=== PATIENT | female | born 1955 | race Caucasian/White ===

== ENCOUNTER → 2023-02-06 | Outpatient (CLI) | payer OTHER, SELFPAY ==
--- NOTE | 2023-02-06 09:20 | US_ITS ---
STUDY: RENAL ULTRASOUND - COMPLETE REASON FOR EXAM: Female, 68 years old. Flank pain and fever TECHNIQUE: Ultrasound evaluation of the kidneys was performed with real-time and static guerin-scale imaging. COMPARISON: None. FINDINGS: RIGHT KIDNEY: Normal location of the right kidney, which is normal in size. The right kidney measures 12.0 x 5.1 x 4.2 cm. There is a normal cortex of the right kidney. The renal cortex measures 1.1 cm. There are 2 separate simple cysts, both measure approximately 1.1 cm in greatest dimension. There are no right renal calculi. There is no right hydronephrosis. DISTAL RIGHT URETER: There is non-visualization of the distal right ureter. There is no demonstrated right ureterovesical junction calculus. There is a visualized right ureteral jet. LEFT KIDNEY: Normal location of the left kidney, which is normal in size. The left kidney measures 11.4 x 4.7 x 5.4 cm. There is a normal cortex of the left kidney. The renal cortex measures 1.4 cm. There is no left renal mass or cyst. There is a nonobstructing 5 mm stone. There is no left hydronephrosis. DISTAL LEFT URETER: There is non-visualization of the distal left ureter. There is no demonstrated left ureterovesical junction calculus. There is a visualized left ureteral jet. AORTA: There is no elongation or tortuosity of the abdominal aorta. I.V.C.: The IVC is patent. BLADDER: The bladder is sonographically normal US/Kidney and Bladder IMPRESSION: No obstructive uropathy or suspicious solid renal lesion Simple right renal cysts, no specific follow-up needed. Nonobstructing left nephrolithiasis Electronically Signed: Austin Easton MD at 12:08 EST ,
== END | disposition home or self-care (01) ==
PROVIDERS: Referring Provider Urology; Visit Provider Urology
DX: N39.0 Urinary tract infection, site not specified (principal)
CPT/HCPCS: 76770

== ENCOUNTER → 2023-03-05 | Outpatient (CLI) | payer OTHER, SELFPAY ==
--- NOTE | 2023-03-05 07:23 | CT_ITS ---
STUDY: CT ABDOMEN AND PELVIS WITHOUT CONTRAST REASON FOR EXAM: Female, 68 years old. UTI KIDNEY STONE. Left flank pain. RADIATION DOSAGE (If Supplied By Facility): CTDIvol = ( 6.08 ) mGy, DLP = ( 274.95 ) mGycm TECHNIQUE: Transaxial images were obtained from the dome of the diaphragm to the symphysis pubis without oral contrast, and without intravenous contrast. Sagittal and coronal images were reconstructed. Individualized dose optimization techniques were used for this CT. COMPARISON: Comparison is made with prior ultrasound of the kidneys dated February 06, 2023. FINDINGS: The visualized lung bases are unremarkable. Coronary artery calcification. Calcified granuloma in the anterior aspect of the right lobe of the liver superiorly. Normal gallbladder and extrahepatic biliary system. Normal spleen. Normal pancreas. There is symmetric enlargement of the adrenal glands suggesting adrenal hyperplasia. Normal right kidney. Normal left kidney. I suspect a 2.5 mm calculus at the left ureterovesical junction. Normal visualized stomach. Normal small intestine. Normal colon. The appendix is visualized and appears normal. There is diffuse atherosclerotic calcification of the abdominal aorta and its major visceral branches, without a demonstrated aneurysm. Normal inferior vena cava. Normal retroperitoneum. Mild degree of the bladder wall thickening although the bladder is not completely distended at this time. Normal abdominal wall. Loss of the normal lumbar lordosis. Marked degree of disc space narrowing and subchondral sclerosis in the spondylosis at the L4-L5 level. CT/Abdomen/Pelvis without Cont IMPRESSION: I suspect a 2.5 mm calculus at the left ureterovesical junction. Electronically Signed: Nacho Morales MD at 8:30 EST ,
== END | disposition home or self-care (01) ==
LOC: CT 07:22
PROVIDERS: Referring Provider Urology; Visit Provider Urology
DX: N20.0 Calculus of kidney (principal); N39.0 Urinary tract infection, site not specified
CPT/HCPCS: 74176

== ENCOUNTER → 2023-04-10 | Outpatient (CLI) | payer OTHER, SELFPAY ==
--- OUTSIDE RECORDS SUMMARY | 2023-04-10 08:12 | XMS RPT_ITS | CCD ---
Author Name Unknown Address [address] [place] [id number] Organization [facility] Care Team Providers Care Manager Garage Name Role Phone Anamaria XIAO DO Primary Care Physician Anamaria XIAO DO Primary Care Unavailable BENY ZUNIGA MD Attending Unavailable Anamaria XIAO DO Attending Unavailable Anamaria XIAO DO Primary Care Unavailable PATRIC WEN Attending Un available Anamaria XIAO DO Primary Care Unavailable ALEKSANDR FENTON PA-C Attending Unavailab Anamaria Perez DO Primary Care Unavailable DR CELESTE TYSON DO Attending Renetta vailable Anamaria XIAO DO Primary Care Unavailable Anamaria XIAO DO Attending Unavailable Anamaria XIAO DO Primary Care Unavailable Anamaria XIAO DO Attending Unavailable Anamaria XIAO DO Primary Care Unavailable Allergies Allergy Classification Reported Allergen(s) Allergy Type Date of Onset Reaction(s) Facility (1 source) Penicillin; Translations: [penicillin] Drug Allergy [facility] Medications Current Medications Medication Drug Class(es) Dates Sig (Normalized) Sig (Original) cetirizine hydrochloride 10 mg oral tablet (2 sources) Histamine-1 Receptor Antagonist Start: 08-14-2022 cetirizine 10 mg oral tablet 0 Refill(s) Start Date: 08/14/22 Status: Ordered Completed/Discontinued Medications Medication Drug Class(es) Dates Sig (Normalized) Sig (Original) albuterol MDI (90 mcg/inh) CFC free inhalation aerosol (1 source) Start: 08-14-2022 End: 09-13-2022 take 2 puff(s) by inhalation four times daily albuterol MDI (90 mcg/inh) CFC free inhalation aerosol 2 puff(s), Inhalation, QID, use with spacer chamber, # 1 EA, 0 Refill(s), Pharmacy: [id number], 160, cm, 08/14/22 13:12:00 EDT, Height, kg, 08/14/22 13:12:00 EDT, Dosing Weight Start Date: 08/14/22 Stop Date: 09/13/22 Status: Ordered Problems Active Problems Problem Classification Problem Date Documented Da te Episodic/Chronic Other upper respiratory infections (1 source) Chronic sinusitis; Translations: [Chronic sinusitis, unspecified] Onset: 12-12-2022 Chronic Other upper respiratory infections (1 source) Acute upper respiratory infection; Translations: [Acute upper respiratory infection, unspecified] Onset: 12-12-2022 Episodic Past or Other Problems Problem Classification Problem Date Documented Da te Episodic/Chronic Genitourinary symptoms and ill-defined conditions (2 sources) Frequency of micturition; Translations: [Frequency of micturition] Onset: 03-27-2022 Episodic Results Test Name Value Interpretation Reference Range Facil ity Vital Signs Date Time Vital Sign Value Performing Clinician Faci lity 12-12-2022 17:07-0400 Diastolic Blood Pressure Non-Invasive 57 1 BENY ZUNIGA MD [facility] 12-12-2022 17:07-0400 Heart rate 62 /min BENY ZUNIGA MD [facility] 12-12-2022 17:07-0400 Reason For Taking VItal Signs BENY ZUNIGA MD [facility] 12-12-2022 17:07-0400 Respiratory rate 18 /min BENY ZUNIGA MD [facility] 12-12-2022 17:07-0400 Systolic Blood Pressure Non-Invasive 126 1 BENY ZUNIGA MD [facility] 12-12-2022 16:37-0400 Diastolic Blood Pressure Non-Invasive 66 1 BENY ZUNIGA MD [facility] 12-12-2022 16:37-0400 Heart rate 56 /min BENY ZUNIGA MD [facility] 12-12-2022 16:37-0400 Respiratory rate 22 /min BENY ZUNIGA MD [facility] 12-12-2022 16:37-0400 Systolic Blood Pressure Non-Invasive 155 1 BENY ZUNIGA MD [facility] 12-12-2022 14:00-0400 Diastolic Blood Pressure Non-Invasive 77 1 BENY ZUNIGA MD [facility] 12-12-2022 14:00-0400 Heart rate 71 /min BENY ZUNIGA MD [facility] 12-12-2022 14:00-0400 Systolic Blood Pressure Non-Invasive 174 1 BENY ZUNIGA MD [facility] 12-12-2022 11:32-0400 Body temperature 98.06 [degF] BENY ZUNIGA MD [facility] 12-12-2022 11:32-0400 Body weight 59.7 kg BENY ZUNIGA MD [facility] 12-12-2022 11:32-0400 Heart rate 72 /min BENY ZUNIGA MD [facility] Encounters Encounter Date Encounter Type Care Provider Facility Start: 12-25-2022 End: 12-26-2022 ambulatory PATRIC POMPA APRN-[employer] Facility:A Start: 12-12-2022 End: 12-12-2022 Emergency department patient visit Anamaria XIAO DO Facility:A Start: 12-12-2022 End: 12-12-2022 Emergency department patient visit BENY ZUNIGA MD [facility] Start: 10-07-2022 End: 10-07-[address] CELESTE TYSON DO Facility:A Start: 08-14-2022 End: 08-14-2022 ambulatory ALEKSANDR FENTON PA-C Facility:A Start: 05-04-2022 End: 05-05-2022 ambulatory Anamaria XIAO DO Facility:A Start: 03-27-2022 End: 04-01-2022 ambulatory Anamaria XIAO DO Facility:A Start: 03-27-2022 End: 03-28-2022 ambulatory Anamaria XIAO DO Facility:A Payers Date Payer Category Payer Unknown [id number] 1955 Unknown [id number] 1955 Unknown [id number] [id number] [id number] 1955 Unknown [id number] [id number] [id number] 1955 Unknown [id number] [id number] [id number] 1955 Unknown [id number] 2.16.8 [id number] 1955 Unknown [id number] 2.16.8 [id number] 1955 Unknown [id number] [id number] [id number] Social History Date Type Detail Facility Start: 12-15-2018 Tobacco smoking status Heavy t obacco smoker (finding) [facility] Sex Assigned At Sex [facility] Functional Status Date Assessment Result Facility 12-12-2022 Functional Status ID band on, Allergy Band on, Call device within reach, Bed in low position, Wheels locked, Upper/Half-Length side-rails up, Phone within reach, personal items within reach, Bedside Cart Locked, Visitor at bedside [facility] Mental Status Date Assessment Result Facility 12-12-2022 Mental Status Oriented x 4 [facility] Discharge instructions 12-12-2022 Note Date & Type Note Facility 12-12-2022 Hospital Discharg e instructions Patient Education 12/12/2022 16:16:30 Acute Sinusitis Acute Sinusitis Acute sinusitis is irritation and swelling of the sinuses. It is usually caused by a viral infection after a common cold. Your doctor can help you find relief. What is acute sinusitis? Sinuses are air-filled spaces in the skull behind the face. They are kept moist and clean by a lining of mucosa. Things such as pollen, smoke, and chemical fumes can irritate the mucosa. It can then swell up. As a response to irritation, the mucosa makes more mucus and other fluids. Tiny hairlike cilia cover the mucosa. Cilia help carry mucus toward the opening of the sinus. Too much mucus may cause the cilia to stop working. This blocks the sinus opening. A buildup of fluid in the sinuses then causes pain and pressure. It can also encourage bacteria to grow in the sinuses. Common symptoms of acute sinusitis You may have: Facial soreness pain Headache Fever Fluid draining in the back of the throat (postnasal drip) Congestion Drainage that is thick and colored, instead of clear Cough Diagnosing acute sinusitis Your doctor will ask about your symptoms and health history. He or she will look at your ear, nose, and throat. You usually won't need to have X-rays taken. The doctor may take a sample of mucus to check for bacteria. If you have sinusitis that keeps coming back, you may need imaging tests such as X-rays or CAT scans. This will help your doctor check for a structural problem that may be causing the infection. Treating acute sinusitis Treatment is aimed at unblocking the sinus opening and helping the cilia work again. You may need to take antihistamine and decongestant medicine. These can reduce inflammation and decrease the amount of fluid your sinuses make. If you have a bacterial infection, you will need to take antibiotic medicine for 10 to 14 days. Take this medicine until it is gone, even if you feel better. [id number] [employer]. [address] [place], [place] [id number]. All rights reserved. This information is not intended as a substitute for professional medical care. Always follow your healthcare professional's instructions. 12/12/2022 16:15:56 Headache, Tension Tension Headache A muscle tension headache is a very common cause of head pain. It s also called a stress headache. When some people are under stress, they tense the muscles of their shoulder, neck, and scalp without knowing it. If this tension lasts long enough, a headache can occur. A tension headache can be quite painful. It can last for hours or even days. Home care Follow these tips when caring for yourself at home: Don t drive yourself home if you were given pain medicine for your headache. Instead, have someone else drive you home. Try to sleep when you get home. You should feel much better when you wake up. Put heat on the back of your neck to help ease neck spasm. How to prevent tension-type headaches Figure out what is causing stress in your life. Learn new ways to handle your stress. Ideas include regular exercise, biofeedback, self-hypnosis, yoga, and meditation. Talk with your healthcare provider to find out more information about managing stress. Many books and digital media are also available on this subject. Take time out at the first sign of a tension headache, if possible. Take yourself out of the stressful situation. Find a quiet, comfortable place to sit or lie down and let yourself relax. Heat and deep massage of the tight areas in the neck and shoulders may help ease muscle spasm. You may also get relief from a medicine like ibuprofen or a prescribed muscle relaxant. Follow-up care Follow up with your healthcare provider, or as advised. Talk with your provider if you have frequent headaches. He or she can figure out a treatment plan. Ask if you can have medicine to take at home the next time you get a bad headache. This may keep you from having to visit the emergency department in the future. You may need to see a headache specialist (neurologist) if you continue to have headaches. When to seek medical advice Call your healthcare provider right away if any of these occur: Your head pain gets worse during sexual intercourse or strenuous activity Your head pain doesn t get better within 24 hours You aren t able to keep liquids down (repeated vomiting) Fever of 100.4 F (38 C) or higher, or as directed by your healthcare provider Stiff neck Extreme drowsiness, confusion, or fainting Dizziness or dizziness with spinning sensation (vertigo) Weakness in an arm or leg or one side of your face You have difficulty speaking Your vision changes [id number] [employer]. [address] [place] [address], [place] [address]. All rights reserved. This information is not intended as a substitute for professional medical care. Always follow your healthcare professional's instructions. Follow Up Care 12/12/2022 11:12:33 With:Anamaria XIAO DO Address: [address] [place] [address]. [place] [address]- When:2-4 days [facility] Emergency department Discharge summary 12-12-2022 Note Date & Type Note Facility 12-12-2022 Emergency departm ent Discharge summary Discharge Instructions Thank you for allowing [facility] to assist you with your healthcare needs. The following is important discharge information regarding your hospital visit. Diagnosis from Today's Visit Headache/chest pressure/sinus drainage Sinusitis URTI - Viral upper respiratory tract infection What to Do Next Instructions from Your Care Team No qualifying data available. Post Acute Orders No qualifying data available. You Need to Schedule the Following Appointments Follow Up with Anamaria XIAO DO When Within 2-4 days Where: [address] [facility] [address] [place] [address]- Allergies penicillin Medications Please ask your primary doctor or pharmacist before taking any other medication not listed, including over the counter drugs, herbal medications, vitamins and or supplements as they may interact with your home medications. What How Much When Instructions Last Dose New doxycycline (doxycycline hyclate 100 mg oral capsule) 1 cap by mouth Two (2) times a day Duration: 7 Days Printed Prescription New predniSONE (predniSONE 5 mg oral tablet) 4 tab(s) by mouth Once a day take 4 tablets a day for 4 days Printed Prescription Unchanged albuterol (albuterol MDI (90 mcg/ inh) CFC free inhalation aerosol) 2 puff(s) by inhalation Four (4) times a day Duration: 30 Days use with spacer chamber Unchanged cetirizine (cetirizine 10 mg oral tablet) Unchanged cetirizine (ZyrTEC) Unchanged escitalopram (escitalopram 5 mg oral tablet) Please take this list to your next doctor s visit. Bring all medications you take, including over the counter medications, herbals and other supplements with you to your doctor s visit. Patients and families are reminded to discard old lists and to update any records with all medication providers or retail pharmacies. Education Materials Acute Sinusitis Acute sinusitis is irritation and swelling of the sinuses. It is usually caused by a viral infection after a common cold. Your doctor can help you find relief. What is acute sinusitis? Sinuses are air-filled spaces in the skull behind the face. They are kept moist and clean by a lining of mucosa. Things such as pollen, smoke, and chemical fumes can irritate the mucosa. It can then swell up. As a response to irritation, the mucosa makes more mucus and other fluids. Tiny hairlike cilia cover the mucosa. Cilia help carry mucus toward the opening of the sinus. Too much mucus may cause the cilia to stop working. This blocks the sinus opening. A buildup of fluid in the sinuses then causes pain and pressure. It can also encourage bacteria to grow in the sinuses. Common symptoms of acute sinusitis You may have: Facial soreness pain Headache Fever Fluid draining in the back of the throat (postnasal drip) Congestion Drainage that is thick and colored, instead of clear Cough Diagnosing acute sinusitis Your doctor will ask about your symptoms and health history. He or she will look at your ear, nose, and throat. You usually won't need to have X-rays taken. The doctor may take a sample of mucus to check for bacteria. If you have sinusitis that keeps coming back, you may need imaging tests such as X-rays or CAT scans. This will help your doctor check for a structural problem that may be causing the infection. Treating acute sinusitis Treatment is aimed at unblocking the sinus opening and helping the cilia work again. You may need to take antihistamine and decongestant medicine. These can reduce inflammation and decrease the amount of fluid your sinuses make. If you have a bacterial infection, you will need to take antibiotic medicine for 10 to 14 days. Take this medicine until it is gone, even if you feel better. [id number] [employer]. [address] [place] [address]. All rights reserved. This information is not intended as a substitute for professional medical care. Always follow your healthcare professional's instructions. Tension Headache A muscle tension headache is a very common cause of head pain. It s also called a stress headache. When some people are under stress, they tense the muscles of their shoulder, neck, and scalp without knowing it. If this tension lasts long enough, a headache can occur. A tension headache can be quite painful. It can last for hours or even days. Home care Follow these tips when caring for yourself at home: Don t drive yourself home if you were given pain medicine for your headache. Instead, have someone else drive you home. Try to sleep when you get home. You should feel much better when you wake up. Put heat on the back of your neck to help ease neck spasm. How to prevent tension-type headaches Figure out what is causing stress in your life. Learn new ways to handle your stress. Ideas include regular exercise, biofeedback, self-hypnosis, yoga, and meditation. Talk with your healthcare provider to find out more information about managing stress. Many books and digital media are also available on this subject. Take time out at the first sign of a tension headache, if possible. Take yourself out of the stressful situation. Find a quiet, comfortable place to sit or lie down and let yourself relax. Heat and deep massage of the tight areas in the neck and shoulders may help ease muscle spasm. You may also get relief from a medicine like ibuprofen or a prescribed muscle relaxant. Follow-up care Follow up with your healthcare provider, or as advised. Talk with your provider if you have frequent headaches. He or she can figure out a treatment plan. Ask if you can have medicine to take at home the next time you get a bad headache. This may keep you from having to visit the emergency department in the future. You may need to see a headache specialist (neurologist) if you continue to have headaches. When to seek medical advice Call your healthcare provider right away if any of these occur: Your head pain gets worse during sexual intercourse or strenuous activity Your head pain doesn t get better within 24 hours You aren t able to keep liquids down (repeated vomiting) Fever of 100.4 F (38 C) or higher, or as directed by your healthcare provider Stiff neck Extreme drowsiness, confusion, or fainting Dizziness or dizziness with spinning sensation (vertigo) Weakness in an arm or leg or one side of your face You have difficulty speaking Your vision changes [id number] [employer]. [address] [place] [address], [place] [address]. All rights reserved. This information is not intended as a substitute for professional medical care. Always follow your healthcare professional's instructions. Additional Information VACCINATE! IT SAVES LIVES! Members of the community who have not yet received the COVID-19 vaccine and would like to receive it can visit one of [facility] vaccine clinics. There are many vaccine clinic locations within the [facility]. For locations and available times, please visit www.gettheshot.coronavirus.[place].gov/. It is important to note that some COVID mobile vaccine clinics are held outdoors and may be canceled in rainy or stormy conditions. To learn more about pediatric vaccinations (ages 5-11), we invite you to visit the [facility] webpage. [email or web address].[email or web address].org/pages/ 2534-Nkcbi-Jkefqvzdrtl-Frequently-Ask ed-Questions.html To learn more about the COVID-19 vaccine, we invite you to visit the CDC website for a list of frequently asked questions. https://www.cdc.gov/coronavirus/2019- ncov/vaccines/faq.html [facility] Patient Portal Access Instructions: Stay connected with your healthcare team and access your personal medical information anytime with the [facility] Patient Portal. If you would like a full copy of your medical records please contact the [facility] Medical Records Department Wednesday through Wednesday between 8a.m. and 4:30p.m. Please follow the directions below to access the portal: 1.Access the email account you provided upon registration to the hospital.2.Look for an invitation email from [facility].3.Open the email and access the invitation link: Accept Invitation to [facility].Fill in the required huber to create your account. Sign into [email or web address] with your username and password that you created in the above steps to stay up to date. You can then view a summary of results, a summary of your visits, and the ability to download your summaries to your computer or send the information securely to a physician. Remember that your healthcare information is confidential, so carefully consider who you will allow to register on the [facility] Patient Portal for access to your information. You can also access the [facility] Patient Portal on the [employer] cel[employer]. Simply click on Health Records under Health Data and then click on the [email or web address] logo. HOW TO SAFELY DISPOSE OF PRESCRIPTION MEDICATIONS Please use one of the following methods to safely dispose of your unused medications. 1.Use a drug disposal kit: the drug disposal pouch allows you to safely discard your old and unused drugs. Ask your nurse to give you one when you are discharged.2.Visit a local take-back location: Many local pharmacies and police departments have programs that collect old and unwanted prescription drugs. Call your local pharmacy or go to http://iGen6.Social Club Hub/4D8Zh9j to find one close to you.3.Make use of household items: Use cat litter or old coffee grounds to dispose medications if other options are not available. Mix your drugs with these household products, seal them in an airtight container and throw it into the garbage. Call [facility]: [phone] to be sure your drugs can be disposed of in this way. Some medicines may require a different approach.4.Never flush your medications down the toilet. IF YOU HAVE BEEN PRESCRIBED AN OPIOIDS FOR PAIN If you have been prescribed an opioid (such as hydrocodone, oxycodone or morphine), it is critical to understand the possible side effects and risks of opioid pain medications. Even when taken as directed, opioids can have several side effects including: Tolerance, meaning you might need to take more of a medication for the same pain relief. Nausea, vomiting and/or constipation. Sleepiness, dizziness, dry mouth, confusion, depression or itching. Physical dependence, meaning you have withdrawal symptoms when a medication is stopped ? this can develop within a few days. KNOW YOUR RESPONSIBILITIES It is important to know exactly how much and how often to take the opioid pain medications you are prescribed. Never take opioids in higher amounts or more often than prescribed. Do not combine opioids with alcohol or other drugs that cause drowsiness, such as benzodiazepines, also known as benzos, including diazepam and alprazolam, muscle relaxants or sleep aids. Never sell or share prescription opioids. This is illegal. Store opioids in a secure place and out of reach of others (including children, family, friends and visitors). The last page(s) of this document has been signed and retained as a CHART COPY Signatures Patient Education Materials Acute Sinusitis Headache, Tension Medication Leaflets My discharge plan and instructions have been reviewed and explained to me and IMARIE NORMA O understand my current condition and have read and understand these discharge instructions. I have received a written copy of the plan/instructions. If I have questions, I am aware that I should contact my doctor. Patient/Physician Asst Signature: __ Date/Time: Relationship to Patient: Witness Name/Signature: Date/Time: [facility] Emergency department Discharge summary 12-12-2022 Note Date & Type Note Facility 12-12-2022 Emergency departm ent Discharge summary Discharge Instructions Thank you for allowing [facility] to assist you with your healthcare needs. The following is important discharge information regarding your hospital visit. Diagnosis from Today's Visit Headache/chest pressure/sinus drainage Sinusitis URTI - Viral upper respiratory tract infection What to Do Next Instructions from Your Care Team No qualifying data available. Post Acute Orders No qualifying data available. You Need to Schedule the Following Appointments Follow Up with Anamaria XIAO DO When Within 2-4 days Where: [address] [facility] [address] [place] [address]- Allergies penicillin Medications Please ask your primary doctor or pharmacist before taking any other medication not listed, including over the counter drugs, herbal medications, vitamins and or supplements as they may interact with your home medications. What How Much When Instructions Last Dose New doxycycline (doxycycline hyclate 100 mg oral capsule) 1 cap by mouth Two (2) times a day Duration: 7 Days Printed Prescription New predniSONE (predniSONE 5 mg oral tablet) 4 tab(s) by mouth Once a day take 4 tablets a day for 4 days Printed Prescription Unchanged albuterol (albuterol MDI (90 mcg/ inh) CFC free inhalation aerosol) 2 puff(s) by inhalation Four (4) times a day Duration: 30 Days use with spacer chamber Unchanged cetirizine (cetirizine 10 mg oral tablet) Unchanged cetirizine (ZyrTEC) Unchanged escitalopram (escitalopram 5 mg oral tablet) Please take this list to your next doctor s visit. Bring all medications you take, including over the counter medications, herbals and other supplements with you to your doctor s visit. Patients and families are reminded to discard old lists and to update any records with all medication providers or retail pharmacies. Education Materials Acute Sinusitis Acute sinusitis is irritation and swelling of the sinuses. It is usually caused by a viral infection after a common cold. Your doctor can help you find relief. What is acute sinusitis? Sinuses are air-filled spaces in the skull behind the face. They are kept moist and clean by a lining of mucosa. Things such as pollen, smoke, and chemical fumes can irritate the mucosa. It can then swell up. As a response to irritation, the mucosa makes more mucus and other fluids. Tiny hairlike cilia cover the mucosa. Cilia help carry mucus toward the opening of the sinus. Too much mucus may cause the cilia to stop working. This blocks the sinus opening. A buildup of fluid in the sinuses then causes pain and pressure. It can also encourage bacteria to grow in the sinuses. Common symptoms of acute sinusitis You may have: Facial soreness pain Headache Fever Fluid draining in the back of the throat (postnasal drip) Congestion Drainage that is thick and colored, instead of clear Cough Diagnosing acute sinusitis Your doctor will ask about your symptoms and health history. He or she will look at your ear, nose, and throat. You usually won't need to have X-rays taken. The doctor may take a sample of mucus to check for bacteria. If you have sinusitis that keeps coming back, you may need imaging tests such as X-rays or CAT scans. This will help your doctor check for a structural problem that may be causing the infection. Treating acute sinusitis Treatment is aimed at unblocking the sinus opening and helping the cilia work again. You may need to take antihistamine and decongestant medicine. These can reduce inflammation and decrease the amount of fluid your sinuses make. If you have a bacterial infection, you will need to take antibiotic medicine for 10 to 14 days. Take this medicine until it is gone, even if you feel better. 2611-0246 [employer]. [address] [place] [address], [place] [address]. All rights reserved. This information is not intended as a substitute for professional medical care. Always follow your healthcare professional's instructions. Tension Headache A muscle tension headache is a very common cause of head pain. It s also called a stress headache. When some people are under stress, they tense the muscles of their shoulder, neck, and scalp without knowing it. If this tension lasts long enough, a headache can occur. A tension headache can be quite painful. It can last for hours or even days. Home care Follow these tips when caring for yourself at home: Don t drive yourself home if you were given pain medicine for your headache. Instead, have someone else drive you home. Try to sleep when you get home. You should feel much better when you wake up. Put heat on the back of your neck to help ease neck spasm. How to prevent tension-type headaches Figure out what is causing stress in your life. Learn new ways to handle your stress. Ideas include regular exercise, biofeedback, self-hypnosis, yoga, and meditation. Talk with your healthcare provider to find out more information about managing stress. Many books and digital media are also available on this subject. Take time out at the first sign of a tension headache, if possible. Take yourself out of the stressful situation. Find a quiet, comfortable place to sit or lie down and let yourself relax. Heat and deep massage of the tight areas in the neck and shoulders may help ease muscle spasm. You may also get relief from a medicine like ibuprofen or a prescribed muscle relaxant. Follow-up care Follow up with your healthcare provider, or as advised. Talk with your provider if you have frequent headaches. He or she can figure out a treatment plan. Ask if you can have medicine to take at home the next time you get a bad headache. This may keep you from having to visit the emergency department in the future. You may need to see a headache specialist (neurologist) if you continue to have headaches. When to seek medical advice Call your healthcare provider right away if any of these occur: Your head pain gets worse during sexual intercourse or strenuous activity Your head pain doesn t get better within 24 hours You aren t able to keep liquids down (repeated vomiting) Fever of 100.4 F (38 C) or higher, or as directed by your healthcare provider Stiff neck Extreme drowsiness, confusion, or fainting Dizziness or dizziness with spinning sensation (vertigo) Weakness in an arm or leg or one side of your face You have difficulty speaking Your vision changes 2543-1253 [employer]. [address] [place] [address], [place] [address]. All rights reserved. This information is not intended as a substitute for professional medical care. Always follow your healthcare professional's instructions. Additional Information VACCINATE! IT SAVES LIVES! Members of the community who have not yet received the COVID-19 vaccine and would like to receive it can visit one of [facility] vaccine clinics. There are many vaccine clinic locations within the [facility]. For locations and available times, please visit www.gettheshot.coronavirus.[place].gov/. It is important to note that some COVID mobile vaccine clinics are held outdoors and may be canceled in rainy or stormy conditions. To learn more about pediatric vaccinations (ages 5-11), we invite you to visit the [facility] webpage. https://www.[facility].org/pages/ 7384-Nbpbo-Ihuhwgowxvy-Frequently-Ask ed-Questions.html To learn more about the COVID-19 vaccine, we invite you to visit the CDC website for a list of frequently asked questions. https://www.cdc.gov/coronavirus/2019- ncov/vaccines/faq.html [facility] Patient Portal Access Instructions: Stay connected with your healthcare team and access your personal medical information anytime with the [facility] Patient Portal. If you would like a full copy of your medical records please contact the [facility] Medical Records Department Wednesday through Wednesday between 8a.m. and 4:30p.m. Please follow the directions below to access the portal: 1.Access the email account you provided upon registration to the hospital.2.Look for an invitation email from [facility].3.Open the email and access the invitation link: Accept Invitation to [facility].Fill in the required huber to create your account. Sign into [email or web address] with your username and password that you created in the above steps to stay up to date. You can then view a summary of results, a summary of your visits, and the ability to download your summaries to your computer or send the information securely to a physician. Remember that your healthcare information is confidential, so carefully consider who you will allow to register on the [facility] Patient Portal for access to your information. You can also access the [facility] Patient Portal on the [employer]. Simply click on Health Records under Health Data and then click on the [email or web address] logo. HOW TO SAFELY DISPOSE OF PRESCRIPTION MEDICATIONS Please use one of the following methods to safely dispose of your unused medications. 1.Use a drug disposal kit: the drug disposal pouch allows you to safely discard your old and unused drugs. Ask your nurse to give you one when you are discharged.2.Visit a local take-back location: Many local pharmacies and police departments have programs that collect old and unwanted prescription drugs. Call your local pharmacy or go to http://iGen6.[employer] Club Hub/0P3Rb3o to find one close to you.3.Make use of household items: Use cat litter or old coffee grounds to dispose medications if other options are not available. Mix your drugs with these household products, seal them in an airtight container and throw it into the garbage. Call [facility]: [phone] to be sure your drugs can be disposed of in this way. Some medicines may require a different approach.4.Never flush your medications down the toilet. IF YOU HAVE BEEN PRESCRIBED AN OPIOIDS FOR PAIN If you have been prescribed an opioid (such as hydrocodone, oxycodone or morphine), it is critical to understand the possible side effects and risks of opioid pain medications. Even when taken as directed, opioids can have several side effects including: Tolerance, meaning you might need to take more of a medication for the same pain relief. Nausea, vomiting and/or constipation. Sleepiness, dizziness, dry mouth, confusion, depression or itching. Physical dependence, meaning you have withdrawal symptoms when a medication is stopped ? this can develop within a few days. KNOW YOUR RESPONSIBILITIES It is important to know exactly how much and how often to take the opioid pain medications you are prescribed. Never take opioids in higher amounts or more often than prescribed. Do not combine opioids with alcohol or other drugs that cause drowsiness, such as benzodiazepines, also known as benzos, including diazepam and alprazolam, muscle relaxants or sleep aids. Never sell or share prescription opioids. This is illegal. Store opioids in a secure place and out of reach of others (including children, family, friends and visitors). The last page(s) of this document has been signed and retained as a CHART COPY Signatures Patient Education Materials Acute Sinusitis Headache, Tension Medication Leaflets My discharge plan and instructions have been reviewed and explained to me and IMARIE NORMA O understand my current condition and have read and understand these discharge instructions. I have received a written copy of the plan/instructions. If I have questions, I am aware that I should contact my doctor. Patient/Physician Asst Signature: __ Date/Time: Relationship to Patient: Witness Name/Signature: Date/Time: [facility] Clinical Note 12-12-2022 Note Date & Type Note Facility 12-12-2022 Note ORIGINAL EXAMINATION: CT OF THE HEAD WITHOUT CONTRAST 12/12/2022 3:54 pm TECHNIQUE: CT of the head was performed without the administration of intravenous contrast. Automated exposure control, iterative reconstruction, and/or weight based adjustment of the mA/kV was utilized to reduce the radiation dose to as low as reasonably achievable. COMPARISON: CT sinuses 05/04/2022, CT head 12/15/2018 HISTORY: ORDERING SYSTEM PROVIDED HISTORY: Reason for Exam: right sided headache x 2 days. pain FINDINGS: BRAIN/VENTRICLES: There is no acute intracranial hemorrhage, mass effect or midline shift. No abnormal extra-axial fluid collection. The jolley-white differentiation is maintained without evidence of an acute infarct. There is no evidence of hydrocephalus. Patchy supratentorial white matter hypodensities are nonspecific but most likely represent chronic microvascular angiopathy. ORBITS: The visualized portion of the orbits demonstrate no acute abnormality. SINUSES: The visualized paranasal sinuses and mastoid air cells demonstrate no acute abnormality. SOFT TISSUES/SKULL: No acute abnormality of the visualized skull or soft tissues. IMPRESSION: No acute intracranial abnormality. I have personally reviewed the images of this examination and agree with the resident's findings and interpretation. Interpreted by: Juan Carlos Bocanegra DO Preliminary Report By: Beatrice Blas Electronically signed By Juan Carlos Bocanegra DO Dictated Date: 12/12/2022 3:55:25 PM Prelim Date: 12/12/2022 3:58:06 PM Sign Date: 12/12/2022 4:03:07 PM Ordering Provider: [facility] HCoV 229E RNA CARIDAD+non-probe Ql (Nph) 12-12-2022 Note Date & Type Note Facility 12-12-2022 HCoV 229E RNA CARIDAD +non-probe Ql (Nph) Not Detected *NA* (12/12/22 2:38 PM) [facility] Clinical Note 12-12-2022 Note Date & Type Note Facility 12-12-2022 Note ORIGINAL EXAMINATION: ONE XRAY VIEW OF THE CHEST 12/12/2022 12:44 pm COMPARISON: 03/27/2022 HISTORY: ORDERING SYSTEM PROVIDED HISTORY: Reason for Exam: chest pain FINDINGS: The lungs are without acute focal process. There is no effusion or pneumothorax. The cardiomediastinal silhouette is without acute process. The osseous structures are without acute process. IMPRESSION: No acute process. Patient status post left axillary lymph node dissection. Interpreted by: Juan Carlos Bocanegra DO Preliminary Report By: Juan Carlos Bocanegra DO Electronically signed By Juan Carlos Bocanegra DO Dictated Date: 12/12/2022 12:48:45 PM Prelim Date: 12/12/2022 12:49:05 PM Sign Date: 12/12/2022 12:49:05 PM Ordering Provider: [facility] Clinical Note 12-12-2022 Note Date & Type Note Facility 12-12-2022 Note SINUS RHYTHM PROBABLE LEFT ATRIAL ENLARGEMENT LEFT AXIS DEVIATION This EKG was read and contributed directly to the care of the patient Electronic Signature: BENY ZUNIGA MD 12/12/2022 14:39:24 [facility] Clinical Note 03-28-2022 Note Date & Type Note Facility 03-28-2022 Note . MICRO - Microbiology PROCEDURE: Urine Culture [*1] SOURCE: Urine BODY SITE: COLLECTED DATE/TIME: 03/27/2022 10:47 EST RECEIVED DATE/TIME: 03/27/2022 17:20 EST START DATE/TIME: 03/27/2022 17:21 EST FREE TEXT SOURCE: FINAL REPORTS Final Report [] Verified Date/Time/Personnel: 03/28/2022 14:12 EST <10,000 cfu/ml. No Significant growth. Sensitivity not indicated. Performing Locations *1: This test was performed at: [facility], [address] [place] [address], [place], [address]- , [facility] ([place]) Evaluation + Plan note Note Date & Type Note Facility Evaluation + Plan note No data available for this section [facility] Summary Purpose Family History No Family History Records Found Advance Directives No Advanced Directives Records Found Additional Source Comments Patient Care team informatio n (unrecognized section and content) Care Team Personnel Name: Anamaria XIAO DO Member Role: Primary Care Physician Address: Address: [address] [facility] [place] [address]- [place] Name: ELOISA RIVERA DO Position: Resident Member Role: Resident Address: Address: [address] [place] [address] Emergency Medicine [address] Name: FORD ENCISO PA-C Position: ED Advanced Presser Machine Member Role: Physician Supervisor [employer] Address: Address: [address] [place] [address] [facility] [address] Name: Hilario Bravo RN Position: ED RN Member Role: ED RN Name: BENY ZUNIGA MD Position: ED Physician Member Role: Attending Physician Address: Address: [address] [place] [address] [facility] [address] Care Team Related Persons Name: DEE SALAZAR INFORMATION SOURCE (unrecogn ized section and content) FOR RECORDS PERTAINING TO PATIENTS WHO ARE OR HAVE BEEN ENROLLED IN A CHEMICAL DEPENDENCY/SUBSTANCEABUSE PROGRAM, SOME INFORMATION MAY BE OMITTED. This clinical summary was aggregated from multiple sources. Caution should be exercised in using it in the provision of clinical care. This summary normalizes information from multiple sources, and as a consequence, information in this document may materially change the coding, format and clinical context of patient data. In addition, data may be omitted in some cases. CLINICAL DECISIONS SHOULD BE BASED ON THE PRIMARY CLINICAL RECORDS. [facility]. provides no warranty or guarantee of the accuracy or completeness of information in this document.
--- NOTE | 2023-04-10 08:13 | CT_ITS ---
INDICATION: LEFT KIDNEY STONE EXAMINATION: CT ABDOMEN AND PELVIS WITHOUT CONTRAST TECHNIQUE: Helically acquired images were obtained of the abdomen and pelvis without IV contrast. 2-D reconstructions reviewed. A radiation dose optimization technique was used for this scan. IV Contrast dosage and agent: None Oral contrast: None COMPARISON: Unenhanced CT abdomen and pelvis from 03/05/2023 FINDINGS: LOWER CHEST: Mild bibasilar atelectatic changes. There are also superimposed punctate reticulonodular opacities within right middle lobe and right lower lobe. Normal size heart with coronary arterial calcifications. LIVER: Benign calcified granulomas within liver. No discrete mass. GALLBLADDER AND BILIARY TREE: No calcified gallstones identified. No pericholecystic edema demonstrated. No significant biliary ductal dilation. PANCREAS: No discrete mass or peripancreatic edema. SPLEEN: Normal size without discrete mass. ADRENAL GLANDS: Benign adenomatous hypertrophy of bilateral adrenal glands again noted. KIDNEYS AND URETERS: Normal renal size and position. Mild chronic appearing bilateral perinephric fat stranding. No hydronephrosis. Subcentimeter low-attenuation exophytic cyst at lower pole of right kidney appears stable, with no additional follow-up recommended at this time. No tract stones identified. Calcified pelvic phleboliths again noted. PERITONEUM: No significant free peritoneal fluid. No free air detected. RETROPERITONEUM: No retroperitoneal mass or pathologic fluid collection. BOWEL: Normal appendix posterior to cecum within right lower quadrant. No bowel obstruction or significant bowel thickening. No focal inflammatory change. LYMPH NODES: No enlarged mesenteric or retroperitoneal lymph nodes. VESSELS: Vascular calcifications with no abdominal aortic aneurysm. URINARY BLADDER: Unremarkable as visualized. REPRODUCTIVE ORGANS: Status post hysterectomy. No pelvic mass. ABDOMINAL WALL: No acute findings or significant hernia defect. BONES: Stable skeletal degenerative changes, most prominent at L4-[address]/Abdomen/Pelvis without Cont IMPRESSION: 1. No evidence of acute intra-abdominal abnormality. 2. No nephrolithiasis or obstructive uropathy. 3. Mild right-sided reticulonodular pulmonary infiltrate. Correlate clinically for possible viral or atypical pneumonia, infectious bronchiolitis, aspiration. 4. Other nonurgent findings within body of report. Electronically Signed: Hira Hennessy MD at 8:01 EST ,
== END | disposition home or self-care (01) ==
PROVIDERS: Referring Provider Urology; Visit Provider Urology
DX: N20.1 Calculus of ureter (principal); M54.9 Dorsalgia, unspecified
CPT/HCPCS: 74176